=== PATIENT | male | born 1980 | race Caucasian/White ===

== ENCOUNTER 2016-03-31 15:53 | Emergency (ER) | payer OTHER ==
[2016-03-31 16:22] VITALS: BP 145/75
--- NOTE | 2016-03-31 16:29 | ERNOTE ---
<Isaiah Gant - Last Filed: 03/31/16 16:29> Integumentary HPI - Narrative Date of Service: 03/31/16 - General Time Seen by Provider: 03/31/16 16:29 - Immun/Allergies/Home Medications Immunizations: IMMUNIZATION HX Immunizations Up to Date Yes Allergies/Adverse Reactions: Allergies Allergy/AdvReac Type Severity Reaction Status Date / Time No Known Allergies Allergy Verified 03/31/16 16:22 Home Medications: HOME MEDICATIONS Sulfamethoxazole/Trimethoprim [Bactrim Ds] 1 tab PO BID #28 tab 03/31/16 [Last Taken Unknown] - Patient's Past Medical History Patient History - Medical: Other Patient History - Cardiac/Respiratory: No pertinent hx Patient History - Cancer: No Hx of Cancer Patient History - Surgical Procedures: Other - Social History Living Situations: home Alcohol Use: none Drug Use: none ED Progress - Vital Signs Vital Signs: Vital Signs 03/31/16 16:14 Temperature 37.1 C Pulse Rate 84 Respiratory 12 Rate Blood Pressure 145/75 O2 Sat by Pulse 97 Oximetry - Progress/Reassessment Chief Complaint: Abscess Departure Clinical Impression: Abscess - Departure Condition: Good Instructions: Abscess, [id number] Additional Instructions: remove abscess packing and bandage tomorrow. Please follow up with primary provider in 2-3 days Prescriptions: Sulfamethoxazole/Trimethoprim [Bactrim Ds] 1 tab PO BID #28 tab <Laura Ortiz - Last Filed: 03/31/16 17:23> Integumentary HPI - Narrative Date of Service: 03/31/16 - General Source: patient Exam Limitations: no limitations - Immun/Allergies/Home Medications Immunizations: IMMUNIZATION HX Immunizations Up to Date Yes - History of Present Illness Narrative: Pt. comes in with c/o abscess on his back that he has noticed for two weeks. Pt. denies any SOB, CP, fevers, numbness, tingling, or other symptoms at this time. Pt. denies any prehospital treatment, alleviating factors, or aggravating factors. Review of Systems - Review of Systems Constitutional: Present: no symptoms reported. Absent: recent illness, fever, chills, fatigue, malaise EYE: Present: no symptoms reported ENT: Present: no symptoms reported Respiratory: Present: no symptoms reported. Absent: shortness of breath, cough , wheezing Cardiology: Present: no symptoms reported. Absent: chest pain, palpitations, edema Gastrointestinal/Abdominal: Present: no symptoms reported Genitourinary: Present: no symptoms reported Musculoskeletal: Present: no symptoms reported Skin: Present: lumps - mid L back Neurological: Present: no symptoms reported. Absent: headache, dizziness/light- headedness, numbness, tingling All Other Systems: All systems neg except as marked - Patient's Past Medical History Patient History - Medical: No pertinent hx Patient History - Cardiac/Respiratory: No pertinent hx Physical Exam - Physical Exam General Appearance: Present: wd/wn, alert, no apparent distress Eye Exam: Normal inspection: bilateral, PERRL: bilateral, EOMI: bilateral Ears, Nose, Throat: Present: normal ENT inspection, hearing grossly normal, normal pharynx Neck: Present: normal inspection, nontender. Absent: lymphadenopathy (R), lymphadenopathy (L) Respiratory: Present: no respiratory distress, normal breath sounds, no accessory muscle use, chest nontender, lungs clear Cardiovascular/Chest: Present: regular rate, rhythm, no murmur, normal peripheral pulses Gastrointestinal/Abdominal: Present: normal bowel sounds, nontender, nondistended, soft, no organomegaly Back Exam: Present: normal inspection, normal range of motion, no CVA tenderness , no vertebral tenderness Extremity Exam: Present: normal inspection, non-tender, no edema, normal range of motion Neurological Exam: Present: alert, oriented, normal mood/affect, no motor/ sensory deficits, 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 Absent: pallor, skin rash ED Progress - Vital Signs Patient's Vital Signs:: I have reviewed the patient's vital signs. Vital Signs: Vital Signs 03/31/16 16:14 Temperature 37.1 C Pulse Rate 84 Respiratory 12 Rate Blood Pressure 145/75 O2 Sat by Pulse 97 Oximetry Procedures Posterior Back Anesthesia: 1% Lidocaine I & D Prep: betadine prep Blade Size: 11 Findings and Actions: purulent drainage large, probed/breakup loculation, packed with guaze, cultures obtained Estimated blood loss (ml): 2 Complications: Pt whit procedure well
== END 2016-03-31 17:33 | disposition home or self-care (01) ==
LOC: ER 15:53
PROC: 0H96XZZ Drainage of Back Skin, External Approach (ICD-10-PCS; principal; 2016-03-31)
DX: L02.212 Cutaneous abscess of back [any part, except buttock and flank] (principal)

== ENCOUNTER 2016-11-20 05:21 | Emergency (ER) | payer SELFPAY ==
[2016-11-20 05:32] VITALS: BP 125/86
[2016-11-20] MEDS ORDERED: POLYMYXIN B SULF/TRIMETHOPRIM 100 DROP BTL ONE (05:39)
[2016-11-20] MEDS ORDERED: POLYMYXIN B SULF/TRIMETHOPRIM 100 DROP BTL LEFTEYE ONE (05:40)
[2016-11-20] MEDS ORDERED: TETRACAINE HCL 150 DROP BTL LEFTEYE ONE (05:44)
[2016-11-20] MEDS ORDERED: TETRACAINE HCL 150 DROP BTL ONE (05:45)
--- NOTE | 2016-11-20 05:56 | ERNOTE ---
ENT HPI Date of Service: 11/20/16 Time Seen by Provider: 11/20/16 05:39 Source: patient, other - nurse - Immun/Allergies/Home Medications Immunizations: IMMUNIZATION HX Immunizations Up to Date Yes Allergies/Adverse Reactions: Allergies Allergy/AdvReac Type Severity Reaction Status Date / Time No Known Allergies Allergy Verified 03/31/16 16:22 Home Medications: HOME MEDICATIONS FLUoxetine HCL [Prozac] 40 mg PO DAILY 11/20/16 [Last Taken Unknown] - History of Present Illness Narrative: This is a 35-year-old gentleman who comes to the emergency department complaining of left eye discomfort which is been going on for 1 day. Patient states that earlier today he noticed that his eye was tearing excessively and looked in the mirror. He says it was quite red. He had his nurse touch around his eye and he experienced exquisite pain. The patient denies having fever he denies any recent illnesses. His son apparently has pink eye quite frequently. The patient's symptoms have continued to get worse. He has a great deal of lacrimation and discomfort. No photophobia. He also noted some purulence and matting of the lids and lashes. He has no other somatic complaints Review of Systems - Review of Systems Constitutional: Present: no symptoms reported EYE: Present: see HPI, eye pain, eye discharge, tearing ENT: Present: no symptoms reported Respiratory: Present: no symptoms reported Cardiology: Present: no symptoms reported Gastrointestinal/Abdominal: Present: no symptoms reported Genitourinary: Present: no symptoms reported Musculoskeletal: Present: no symptoms reported Skin: Present: no symptoms reported Neurological: Present: no symptoms reported Endocrine: Present: no symptoms reported Hematologic/Lymphatic: Present: no symptoms reported Psych: Present: no symptoms reported All Other Systems: All systems neg except as marked - Patient's Past Medical History Patient History - Medical: Depression Patient History - Cardiac/Respiratory: No pertinent hx Patient History - Cancer: No Hx of Cancer Patient History - Surgical Procedures: Hernia Repair Patient History - Other: None - Social History Living Situations: home Abuse History: No History of abuse Psych History: Hx of Depression Smoking Status: Current every day smoker Have you smoked in the past 12 months: Yes Do you dip or chew tobacco: No Alcohol Use: rarely Drug Use: marijuana, meth - Immunizations Immunizations Up to Date: Yes Physical Exam - Physical Exam General Appearance: Present: wd/wn, alert, no apparent distress Head Exam: Present: normal inspection, no evidence of injury, lacerations Eye Exam: PERRL: bilateral, EOMI: bilateral, Sclera injection: left, Eye drainage: left, Eyelid inflammation: left, Other: left - matting of the lashes Ears, Nose, Throat: Present: normal ENT inspection Neck: Present: normal inspection Respiratory: Present: no respiratory distress, lungs clear Cardiovascular/Chest: Present: regular rate, rhythm Gastrointestinal/Abdominal: Present: soft Back Exam: Present: normal range of motion Extremity Exam: Present: normal inspection, no edema Neurological Exam: Present: alert, oriented, normal mood/affect, no motor/ sensory deficits Skin Exam: Present: normal color, warm/dry Lymphatic Exam: Present: no adenopathy ED Progress - Vital Signs Patient's Vital Signs:: I have reviewed the patient's vital signs. Vital Signs: Vital Signs 11/20/16 05:26 Temperature 36.5 C Pulse Rate 82 Respiratory 14 Rate Blood Pressure 125/86 O2 Sat by Pulse 98 Oximetry - Progress/Reassessment Chief Complaint: Eye Injury/Trauma Progress:: Pain free at discharge Progress Note-Subjective: 11/20/16 05:55 Patient got much better after the tetracaine drops. Examined with tetracaine and floor seen and Lambert lamp as well as slit lamp. Slit lamp does not demonstrate any abrasions. Lambert lamp does not demonstrate any abrasions. Slit lamp does not demonstrate any haziness in the anterior chamber. There is no hyphema or pseudohypha present on the surface of the eye. Plan - Plan Plan: The patient has matting of his lids with purulent material, a pink irritated I, extraocular muscles are intact and the pupils are round and reactive. This is unilateral. He has exposure to a child who often has pink eye. This is essentially pathognomonic for pinkeye. Also certainly a viral infection, but I am treating him with Polytrim drops in case it is bacterial. If he is not getting better within 48 hours he needs to return to the ER or see an private eye. If he develops any new symptoms which are concerning he needs to return. Departure Clinical Impression: Conjunctivitis Qualifiers: Conjunctivitis type: acute Acute conjunctivitis type: unspecified Laterality: left Qualified Code(s): H10.32 - Unspecified acute conjunctivitis, left eye - Departure Disposition: Home self-care Condition: Good Instructions: Bacterial Conjunctivitis, [id number] Additional Instructions: As we discussed, your symptoms and exam are consistent with a viral infection of the surface of URI. The common name for this as pink eye. This will get better on its own within a couple of days. There is really no specific treatment which is going to make it better any quicker. On the very rare chance that he might have a bacterial infection I've prescribed Polytrim drops for you. You need to put 2 drops in her left eye every 3 hours while you are awake. Do this for 7 days. If you are not getting better in 48 hours she need to return to the emergency Department or get in to see a private eye. If you develop redness down into her cheek, eye fever, or any new concerning symptoms she need to return to the ER.
== END 2016-11-20 05:58 | disposition home or self-care (01) ==
LOC: ER 05:21
DX: H10.32 Unspecified acute conjunctivitis, left eye (principal); F17.200 Nicotine dependence, unspecified, uncomplicated; F32.9 Major depressive disorder, single episode, unspecified

== ENCOUNTER 2016-11-22 10:04 | Emergency (ER) | payer SELFPAY ==
[2016-11-22 10:33] VITALS: BP 154/42
--- NOTE | 2016-11-22 11:19 | ERNOTE ---
Upper Extremity HPI - General Extremities Pain Location: hand: right Time Seen by Provider: 11/22/16 10:47 Source: patient Exam Limitations: no limitations - Immun/Allergies/Home Medications Immunizations: IMMUNIZATION HX Immunizations Up to Date Yes History of Influenza Vaccine No Hx Pneumococcal Vaccination No Allergies/Adverse Reactions: Allergies Allergy/AdvReac Type Severity Reaction Status Date / Time No Known Allergies Allergy Verified 11/22/16 10:32 Home Medications: HOME MEDICATIONS FLUoxetine HCL [Prozac] 40 mg PO DAILY 11/20/16 [Last Taken Unknown] Naproxen [Naprosyn] 500 mg PO BID #60 tablet 11/22/16 [Last Taken Unknown] - History of Present Illness Narrative: Patient is unclear exactly what could happen to his right hand. He has been doing a lot of repetitive use and started noticed swelling and the right hand from the carpal bones to the metacarpophalangeal joint Occurred: yesterday Location of Incident: home Severity: mild Method of Injury: Reports: no apparent injury Loss of Consciousness: Reports: no loss of consciousness Other Injuries: Reports: none Review of Systems - Review of Systems Constitutional: Present: See HPI EYE: Present: no symptoms reported ENT: Present: no symptoms reported Respiratory: Present: no symptoms reported Cardiology: Present: no symptoms reported Gastrointestinal/Abdominal: Present: no symptoms reported Genitourinary: Present: no symptoms reported Musculoskeletal: Present: See HPI, joint swelling Skin: Present: no symptoms reported Neurological: Present: no symptoms reported Endocrine: Present: no symptoms reported Hematologic/Lymphatic: Present: no symptoms reported Psych: Present: no symptoms reported - Patient's Past Medical History Patient History - Medical: Depression Patient History - Cardiac/Respiratory: No pertinent hx Patient History - Cancer: No Hx of Cancer Patient History - Surgical Procedures: Hernia Repair Patient History - Other: None - Social History Living Situations: other Abuse History: No History of abuse Psych History: Hx of Depression Smoking Status: Current every day smoker Have you smoked in the past 12 months: Yes Do you dip or chew tobacco: No Alcohol Use: rarely Drug Use: none - Immunizations Immunizations Up to Date: Yes Hx Pneumococcal Vaccination: No History of Influenza Vaccine: No Physical Exam - Physical Exam General Appearance: Present: wd/wn, alert, mild distress Head Exam: Present: normal inspection Eye Exam: Normal inspection: bilateral, PERRL: bilateral Ears, Nose, Throat: Present: normal ENT inspection, H, normal pharynx Neck: Present: normal inspection, nontender Respiratory: Present: no respiratory distress, normal breath sounds, no accessory muscle use, chest nontender, lungs clear Cardiovascular/Chest: Present: regular rate, rhythm, no murmur, normal peripheral pulses Gastrointestinal/Abdominal: Present: normal bowel sounds, nontender, nondistended, soft, no organomegaly Rectal Exam: Present: deferred Back Exam: Present: normal inspection, normal range of motion Extremity Exam: Present: decreased range of motion, joint swelling, extremity edema Neurological Exam: Present: alert, oriented, normal mood/affect Skin Exam: Present: normal color, warm/dry Lymphatic Exam: Present: no adenopathy ED Progress - Vital Signs Patient's Vital Signs:: I have reviewed the patient's vital signs. Vital Signs: Vital Signs 11/22/16 10:28 Temperature 37.0 C Pulse Rate 88 Respiratory 18 Rate Blood Pressure 154/42 O2 Sat by Pulse 97 Oximetry - X-Ray X-Ray #1 X-Ray: hand Interpretation: Reviewed by me - Progress/Reassessment Chief Complaint: Hand Injury/Pain Plan - Plan Plan: I suspect the patient may have a repetitive use injury and we will provide a splint for the area, started him on nonsteroidals and have him follow-up with his family physician. Departure Clinical Impression: Hand sprain Qualifiers: Encounter type: initial encounter Laterality: right Qualified Code(s): S63.91XA - Sprain of unspecified part of right wrist and hand, initial encounter - Departure Disposition: Home self-care Condition: Good Instructions: Intermetacarpal Sprain Prescriptions: Naproxen [Naprosyn] 500 mg PO BID #60 tablet
== END 2016-11-22 11:25 | disposition home or self-care (01) ==
LOC: ER 10:04
PROC: 2W3EX1Z Immobilization of Right Hand using Splint (ICD-10-PCS; principal; 2016-11-22)
DX: S63.91XA Sprain of unspecified part of right wrist and hand, initial encounter (principal); F32.89 Other specified depressive episodes; F17.200 Nicotine dependence, unspecified, uncomplicated